=== PATIENT | male | born 1985 | race Caucasian/White ===

== ENCOUNTER 2018-07-15 17:57 | Emergency (ER) | payer SELFPAY ==
[~2018-07-15] VITALS: Ht 180.3 cm; Wt 90.7 kg
--- OUTSIDE RECORDS SUMMARY | 2018-07-15 18:03 | XMS REPORT ---
Author Author WAYNE KELLY Organization [facility] Address [address] [place] [address] Care Team Providers Care Custom Leather Products Maker Name Role Phone WAYNE KELLY Unavailable PROBLEMS Type Condition ICD9-CM Code [id number] Code Onset Dates Condition Status SNOMED Code Problem Routine general medical examination at health care facility V70.0 Active [id number] ALLERGIES Substance Reaction Event Type Date Status Aspirin Unknown Drug Allergy Nov, Active Penicillins Unknown Non Drug Allergy Nov, Active SOCIAL HISTORY Never Assessed PLAN OF CARE VITAL SIGNS Height 72 in 2016-12-06 Weight 208 lbs 2016-12-06 Temperature 98.1 degrees Fahrenheit 2016-12-06 Heart Rate 90 bpm 2016-12-06 Respiratory Rate 20 2016-12-06 BMI 28.21 kg/m2 2016-12-06 Blood pressure systolic 130 mmHg 2016-12-06 Blood pressure diastolic 84 mmHg 2016-12-06 MEDICATIONS No Known Medications RESULTS No Results PROCEDURES No Known procedures IMMUNIZATIONS No Known Immunizations
--- OUTSIDE RECORDS SUMMARY | 2018-07-15 18:03 | XMS REPORT ---
Author YOLANDE [facility] Address [address] [place] [address] Care Team Providers Care Police Guard Name Role Phone YOLANDE PLASCENCIA Unavailable PROBLEMS Type Condition ICD9-CM Code [id number] Code Onset Dates Condition Status SNOMED Code Problem Routine general medical examination at health care facility V70.0 Active [id number] ALLERGIES Substance Reaction Event Type Date Status Aspirin Unknown Drug Allergy Nov, Active Penicillins Unknown Non Drug Allergy Nov, Active SOCIAL HISTORY Never Assessed PLAN OF CARE Activity Details Follow Up 48-72 hours Reason: VITAL SIGNS MEDICATIONS No Known Medications RESULTS No Results PROCEDURES Procedure Date Ordered Result Body Site TB INTRADERMAL 2016-12-03 N/A Structure of right forearm TB INTRADERMAL TEST December 03, 2016 IMMUNIZATIONS No Known Immunizations
--- NOTE | 2018-07-15 18:35 | ED Lower Extremity ---
General Chief Complaint: Lower Extremity Stated Complaint: R ANKLE SWOLLEN Source: patient Exam Limitations: no limitations History of Present Illness Date Seen by Provider: Jul 15, 2018 Time Seen by Provider: 18:24 Initial Comments PT ARRIVES VIA POV FROM HOME STATES HE WOKE UP YESTERDAY MORNING WITH RIGHT ANKLE PAIN AND SWELLING NO KNOWN INJURY OR UNUSUAL ACTIVITY--HAD NOT BEEN WORKING OR DOING ANY PARTICULAR ACTIVITY AT ALL. STATES HE DOES NOT WORK NO HISTORY OF SIMILAR NO FEVER OR RECENT ILLNESS NO SORES/WOUNDS TO FOOT/ANKLE NO OTHER SWOLLEN JOINTS STATES HIS TOES AND BOTTOM OF HIS FOOT TINGLES A LITTLE TOOK 2 IBUPROFEN AT NOON TODAY AND TOOK 1 " LEFT OVER" HYDROCODONE AT 1600--NO RELIEF PCP: NONE Allergies and Home Medications Allergies Coded Allergies: No Known Drug Allergies (Unverified , 07/15/18) Home Medications Methylprednisolone 4 Mg Tab.ds.pk, 4 MG PO UD Prescribed by: NICO CRUZ on 07/15/181916 Tramadol HCl 50 Mg Tablet, 50 MG PO Q4H Prescribed by: NICO CRUZ on 07/15/181916 Patient Home Medication List Home Medication List Reviewed: Yes Review of Systems Constitutional: no symptoms reported Musculoskeletal: see HPI Skin: no symptoms reported Psychiatric/Neurological: See HPI Past Rbznevr-[id number]-[id number] Hx Patient Social History Alcohol Use: Denies Use Recreational Drug Use: No Smoking Status: Current Everyday Smoker (1 PACK/WEEK) Type Used: Cigarettes Recent Foreign Travel: No Contact w/Someone Who Travel: No Past Medical History Surgeries: Yes (LEFT ANKLE SURGERY--NON-TRAUMATIC) Orthopedic Respiratory: No Cardiac: No Neurological: No Genitourinary: No Gastrointestinal: No Musculoskeletal: Yes (LEFT ANKLE SURGERY--NON-INJURY RELATED) Endocrine: No HEENT: No Cancer: No Psychosocial: No Integumentary: No Blood Disorders: No Physical Exam Vital Signs Vital Signs - First Documented 07/15/18 18:22 Temp 98.0 Pulse 98 Resp 18 B/P (MAP) 127/81 (96) Pulse Ox 98 O2 Delivery Room Air Capillary Refill : Height, Weight, BMI Height: '" Weight: lbs. oz. kg; BMI Method: General Appearance: WD/WN, no apparent distress Hips: right hip normal inspection Legs: right leg normal inspection Knees: right knee normal inspection Ankles: left ankle normal inspection; right ankle bone tenderness, right ankle limited range of motion, right ankle pain, right ankle soft tissue tenderness, right ankle swelling, right ankle other (MODERATE SWELLING DIFFUSELY TO RIGHT ANKLE, DOWN TO MID FOOT WITH DIFFUSE TENDERNESS. TENDERNESS IS OVER MEDIAL AND LATERAL MALLEOLI. NO ACHILLES OR CALCANEAL TENDERNESS. NO ERYTHEMA OR WARMTH. NO EFFUSION. 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, no motor/sensory deficits, alert, normal mood/affect, oriented x 3 Skin: normal color, warm/dry Procedures/Interventions Splinting and Joint Reduction : Malcolm wrap: Yes Immobilizers: Step Light Walker s/m/lg Progress/Results/Core Measures Results/Orders My Orders Orders - NICO CRUZ DO Foot, Right, 3 View (07/15/18 18:28) Ankle, Right, 3 Views (07/15/18 18:28) Malcolm Bandage (07/15/18 19:11) Steplite (07/15/18 19:11) Rx-Tramadol Hcl (Rx-Ultram) (07/15/18 19:11) Prednisone Tablet (Deltasone Tablet) (07/15/18 19:15) Vital Signs/I&O 07/15/18 18:22 Temp 98.0 Pulse 98 Resp 18 B/P (MAP) 127/81 (96) Pulse Ox 98 O2 Delivery Room Air Progress Progress Note : Progress Note AT DISMISSAL, PT NOW STATES THAT HE IS A VOL[employer] Y[employer] MAN, AND 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 WHICH IS NOT A NORMAL ACTIVITY FOR HIM, BUT DENIES ANY SPECIFIC INJURY Diagnostic Imaging Comments XRAYS RIGHT FOOT AND ANKLE--NO ACUTE PROCESS, PER RADIOLOGIST REPORTS @ 1910 Reviewed: Reviewed by Me Departure Impression Primary Impression: Right ankle sprain Disposition: HOME, SELF-CARE Condition: Stable Departure-Patient Inst. Referrals: NO,LOCAL PHYSICIAN (PCP) Primary Care Physician Patient Instructions: Ankle Sprain (DC), How to Use an Elastic Bandage Add. Discharge Instructions: MALCOLM WRAP AND BOOT NEEDED FOR COMFORT ALTERNATE ICE AND HEAT TO THE AREA AT 20 MINUTE INTERVALS ELEVATE FOOT MUCH POSSIBLE FOLLOW UP WITH DR OF CHOICE IN 1 WEEK IF NO BETTER All discharge instructions reviewed with patient and/or family. Voiced understanding. Scripts Tramadol HCl (Ultram) 50 Mg Tablet 50 MG PO Q4H, #20 TAB Prov: NICO CRUZ DO 07/15/18 Methylprednisolone (Medrol) 4 Mg Tab.ds.pk 4 MG PO UD, #1 PKG Prov: NICO CRUZ DO 07/15/18 NICO CRUZ DO Jul 15, 2018 18:35
--- NOTE | 2018-07-15 18:54 | Diagnostic Imaging Report ---
INDICATION: Pain. EXAMINATION: Three views of the ankle were obtained. FINDINGS: The alignment is normal. Plafonds and talar dome are intact. The ankle mortise is symmetric. There is no fracture or dislocation. Soft tissues are unremarkable. IMPRESSION: No acute fracture or dislocation. Dictated by: Dictated on workstation # [id number]
--- NOTE | 2018-07-15 18:55 | Diagnostic Imaging Report ---
INDICATION: Pain and swelling. EXAMINATION: Three views of the right foot were obtained. FINDINGS: The alignment is normal. There is no fracture or dislocation. Soft tissues are unremarkable. IMPRESSION: No acute fracture or dislocation. Dictated by: Dictated on workstation # [id number]
[2018-07-15] MEDS ORDERED: RX-TRAMADOL 50 MG (ULTRAM) TAB PPK#4 PO STA (19:11)
[2018-07-15] MEDS ORDERED: predniSONE 10 MG TAB PO ONE (19:15)
[2018-07-15] MEDS ORDERED: TRAM-42 PO (19:17)
[2018-07-15] MEDS ORDERED: METH4TAB PO (19:17)
[2018-07-15 19:54] VITALS: BP 127/81
== END 2018-07-15 19:54 | disposition home or self-care (01) ==
LOC: EDUNIT# 17:57 → ER 17:59
DX: S93.401A Sprain of unspecified ligament of right ankle, initial encounter (principal); F17.210 Nicotine dependence, cigarettes, uncomplicated; Z79.52 Long term (current) use of systemic steroids; X58.XXXA Exposure to other specified factors, initial encounter
CPT/HCPCS: 73610; 73630